=== PATIENT | male | born 1985 | race Caucasian/White ===

== ENCOUNTER → 2023-06-07 | Outpatient (CLI) | payer SELFPAY, OTHER ==
--- NOTE | 2023-06-07 11:00 | CT_ITS ---
STUDY: CT LEFT ELBOW WITHOUT CONTRAST REASON FOR EXAM: Male, 37 years old. DISP FX OF HEAD OF LEFT RADIUS, INIT FOR CLOS FX RADIATION DOSAGE (If Supplied By Facility): CTDIvol = ( 9.46 ) mGy, DLP = ( 303.49 ) mGycm TECHNIQUE: Transaxial CT imaging of the elbow was performed. Sagittal and coronal images were reconstructed. Individualized dose optimization techniques were used for this CT. COMPARISON: None. FINDINGS: Mild depressed fracture of the anterior aspect of the proximal portion of the anterior aspect of the ulna. This extends to the articular surface. Normal radiocapitellar and ulnotrochlear articulations. Joint effusion. CT/Extremity Upper without Contra IMPRESSION: Nondisplaced depressed fracture along the anterior aspect of the proximal ulna extending to the articular surface. Joint effusion. Electronically Signed: Sixto Rutherford MD at 12:24 EDT ,
--- NOTE | 2023-06-07 11:00 | CT_ITS ---
STUDY: CT CERVICAL SPINE WITHOUT CONTRAST REASON FOR EXAM: Male, 37 years old. UNSP NONDISP FX OF 7TH VERTEBRA, INIT RADIATION DOSAGE (If Supplied By Facility): CTDIvol = ( 15.90 ) mGy, DLP = ( 737.94 ) mGycm TECHNIQUE: High resolution transaxial imaging was performed without contrast material. Sagittal and coronal images were reconstructed. Individualized dose optimization techniques were used for this CT. COMPARISON: None FINDINGS: Normal craniovertebral junction. Normal anterior atlantoaxial articulation. Normal odontoid process. Normal cervical lordosis. Normal vertebral bodies and posterior osseous elements. C2-3: Normal endplates. Normal disc height and morphology. Normal central canal and intervertebral neuroforamina. C3-4: Normal endplates. Normal disc height and morphology. Normal central canal and intervertebral neuroforamina. C4-5: Normal endplates. Normal disc height and morphology. Normal central canal and intervertebral neuroforamina. C5-6: Normal endplates. Normal disc height and morphology. Normal central canal and intervertebral neuroforamina. C6-7: Compression fracture of the C7 vertebrae with loss of height of approximately 20%. There is a nondisplaced fracture along the inferior anterior endplate of the C7 vertebrae. C7-T1: Normal endplates. Normal disc height and morphology. Normal central canal and intervertebral neuroforamina. Normal visualized soft tissue structures. CT/Spine Cervical without Contras IMPRESSION: Compression fracture of the C7 vertebrae with nondisplaced fracture along its anterior inferior endplate. Loss of height of approximately 20%. Electronically Signed: Sixto Rutherford MD at 12:27 EDT ,
== END | disposition home or self-care (01) ==
LOC: CT 10:39
PROVIDERS: Referring Provider Orthopaedic Surgery; Visit Provider Orthopaedic Surgery
DX: S12.601A Unspecified nondisplaced fracture of seventh cervical vertebra, initial encounter for closed fracture (principal); S52.122A Displaced fracture of head of left radius, initial encounter for closed fracture; X58.XXXA Exposure to other specified factors, initial encounter
CPT/HCPCS: 72125; 73200